=== PATIENT | female | born 1995 | race African-American/Black ===

== ENCOUNTER 2017-09-04 21:59 | Emergency (ER) | payer MEDICAID ==
[~2017-09-04] VITALS: Ht 152.4 cm; Wt 72.6 kg
--- NOTE | 2017-09-04 22:59 | Emergency Room Report ---
History of Present Illness General Chief Complaint: Female Urogenital Problems Source: Patient Present Illness HPI Pt. c/o 2-3 days thick white vaginal secretions, also itchy, irritated. Has one boyfriend she thinks he's monogamous but she wants to be treated for STDs.No abd pain, no n/v. LMP August 19. Nulliparous. No trauma, no fever, no shortness of breath, no chest pain, no nausea, no vomiting, no diarrhea, no abdominal pain , no syncope, LOC, dizziness, lightheadedness, headache. Allergies: Coded Allergies: No Known Allergies (Unverified , 09/04/17) Patient History Now: No Nursing Documentation-[facility] Past Medical History: No Stated History Review of Systems Constitutional: Denies: fever Eye: Denies: acuity changes Respiratory: Denies: cough, shortness of breath Cardiovascular: Denies: chest pain Gastrointestinal: Denies: nausea, vomiting Skin: Denies: rash Neurological: Denies: headache Physical Exam Vital Signs Date Time Temp Pulse Resp B/P (MAP) Pulse Ox O2 Delivery O2 Flow Rate FiO2 09/04/17 22:11 97.6 78 16 130/70 98 Room Air 97.5 General Appearance: well appearing, no apparent distress Head: normocephalic, atraumatic ENT: hearing grossly normal, normal voice Neck: full range of motion, supple Respiratory: no respiratory distress, speaking full sentences Genitourinary: normal inspection, no CVA tenderness, adnexa normal, cervix normal, os closed, other - white d/c looks like netta; no cmt, no adnexal masses, Musculoskeletal: no calf tenderness Neurologic: alert, normal gait Psychiatric: mood/affect normal Skin: no rash Medical Decision Making Diagnostic Impression: Primary Impression: Candidiasis of vagina Last Vital Signs Date Time Temp Pulse Resp B/P (MAP) Pulse Ox O2 Delivery O2 Flow Rate FiO2 09/04/17 22:11 97.6 78 16 130/70 98 Room Air 97.5 Status: improved Disposition: HOME, SELF-CARE Patient Instructions: Vaginal Yeast Infection, Adult Terry Morton M.D. Sep 04, 2017 22:59
[2017-09-04] MEDS ORDERED: Azithromycin 250mg tab ORAL ONE (23:00)
[2017-09-04] MEDS ORDERED: Lidocaine 1% MPF 10mg/ml 5ml INJ ONE (23:00)
[2017-09-04] MEDS ORDERED: METRONIDAZOLE500 MG ORAL (23:18)
[2017-09-04 23:30] VITALS: BP 128/70
[2017-09-05 00:15] VITALS: BP 130/70
== END 2017-09-05 00:15 | disposition home or self-care (01) ==
LOC: EMR 23:11
DX: B37.3 Candidiasis of vulva and vagina (principal)
CPT/HCPCS: 87210; 87491; 87590; 96372; 99283; J0696; Q0144

== ENCOUNTER 2017-09-15 21:45 | Emergency (ER) | payer MEDICAID, OTHER ==
[~2017-09-15] VITALS: Ht 152.4 cm; Wt 88.0 kg
[~2017-09-15 21:45] MED LIST: METRONIDAZOLE500 MG ORAL
[2017-09-15 23:15] VITALS: BP 132/89
[2017-09-16] MEDS ORDERED: Acetaminophen 500mg (ES) tab ORAL ONE
[2017-09-16] MEDS ORDERED: IBUPROFEN600 MG ORAL (00:05)
[2017-09-16] MEDS ORDERED: LIDOCAINE700 M1 TP (00:06)
[2017-09-16 00:15] VITALS: BP 132/89
--- NOTE | 2017-09-18 15:10 | Emergency Room Report ---
History of Present Illness General Chief Complaint: Pain Source: Patient Present Illness HPI Patient is a 22-year-old female presented after increased left shoulder pain after lifting heavy boxes at work. Patient reported having increased gradual onset of symptoms. She denies any numbness or weakness. She presented having increased pain with movements. This had had not been associated with any fever. She denies any recent trauma. She reports having the pain to the shoulder primarily. Allergies: Coded Allergies: No Known Allergies (Unverified , 09/04/17) Patient History Past Medical History: see triage record Last Menstrual Period: 09/14/17 Reviewed Nursing Documentation: PMH: Agreed; PSxH: Agreed Nursing Documentation-PMH Past Medical History: No History, Except For Review of Systems All Other Systems: negative except mentioned in HPI Physical Exam Vital Signs Date Time Temp Pulse Resp B/P (MAP) Pulse Ox O2 Delivery O2 Flow Rate FiO2 09/15/17 23:11 97.9 75 16 132/89 95 Room Air 97.9 Sp02 EP Interpretation: reviewed, normal General Appearance: normal inspection, well appearing, no apparent distress, alert Head: atraumatic ENT: normal ENT inspection, hearing grossly normal, normal voice Neck: normal inspection, full range of motion, supple, no bony tend Respiratory: normal inspection, lungs clear, normal breath sounds, no respiratory distress, no retraction, no wheezing Cardiovascular #1: regular rate, rhythm, no edema Gastrointestinal: normal inspection, normal bowel sounds, non tender, soft, no guarding, no hernia Genitourinary: no CVA tenderness Musculoskeletal: normal inspection, back normal, decreased range of motion - limited ROM tenderness to left paraspinous muscles Neurologic: normal inspection, alert, responsive, speech normal Psychiatric: normal inspection, judgement/insight normal, mood/affect normal Skin: normal inspection, normal color, no rash Medical Decision Making Diagnostic Impression: Primary Impression: Muscle strain ER Course The patient presented for left shoulder pain. Differential diagnoses included was not limited to fracture, dislocation, a.c. separation, septic joint. The shoulder pain appears to be muscular in nature. The patient was given pain medications. She is advised to follow-up with workers comp physician. She is placed on light duty. test was noted be negative.The patient is advised to follow up with workers comp . Patient is advised to return if any worsening condition or if any changes in status that are concerning. This report is dictated with [employer] operator tape rules software which may occasionally lead to discrepancies related to use of this software. Last Vital Signs Date Time Temp Pulse Resp B/P (MAP) Pulse Ox O2 Delivery O2 Flow Rate FiO2 09/16/17 00:15 97.9 16 132/89 95 Room Air 208.2 09/15/17 23:15 75 Status: improved Disposition: HOME, SELF-CARE Condition: Stable Scripts Lidocaine (Lidocaine) 1 Each Adh..patch 5 % TP DAILY, #30 PATCH Prov: Rusty Ramos MD 09/16/17 Ibuprofen* (MOTRIN*) 600 Mg Tablet 600 MG ORAL Q8H PRN for For Pain, #30 TAB 0 Refills Prov: Rusty Ramos MD 09/16/17 Referrals: NOT CHOSEN IPA/,REFERRING (PCP) Patient Instructions: Muscle Strain Rusty Ramos MD Sep 18, 2017 15:10
== END 2017-09-16 00:15 | disposition home or self-care (01) ==
LOC: EMR 23:55
DX: S46.912A Strain of unspecified muscle, fascia and tendon at shoulder and upper arm level, left arm, initial encounter (principal); X50.0XXA Overexertion from strenuous movement or load, initial encounter; Y93.89 Activity, other specified; Y92.89 Other specified places as the place of occurrence of the external cause; Y99.0 Civilian activity done for income or pay
CPT/HCPCS: 99283

== ENCOUNTER 2017-11-14 19:36 | Emergency (ER) | payer MEDICAID, OTHER ==
[~2017-11-14] VITALS: Ht 152.4 cm; Wt 87.1 kg
[~2017-11-14 19:36] MED LIST changes: +IBUPROFEN600 MG ORAL; +LIDOCAINE700 M1 TP
[2017-11-14] MEDS ORDERED: NKM (19:42)
--- NOTE | 2017-11-14 19:57 | Emergency Room Report ---
History of Present Illness General Chief Complaint: Abdominal Pain Source: Patient (Osorio Cerrato M.D.) Present Illness HPI Patient presents with 8 days of illness. It started with vomiting initially. Now she has a slight cough sore throat headache. She denies any diarrhea. She doesn't think she is but she's not sure. She's been one time in the past has been many years. She says her period has lasted longer than usual and has been bleeding for most the time of this illness. The pain in her abdomen is rated at 8/10, constant, diffuse, not radiating. No dysuria. The patient was treated for a lung infection many years ago when she was living in [place]. The cough right now is nonproductive. It's worse when she is laying down. She's not herself wheezing. She feels myalgias and some pleuritic chest pain. H/O migraines and headache now. (Osorio Cerrato M.D.) Allergies: Coded Allergies: No Known Allergies (Unverified , 09/04/17) Patient History Past Medical History: see triage record Social History: Denies: smoking, alcohol use, drug use Social History Narrative with sig other Last Menstrual Period: currently on period Now: No Reviewed Nursing Documentation: PMH: Agreed; PSxH: Agreed (Osorio Cerrato M.D.) Nursing Documentation-PMH Past Medical History: No History, Except For (Osorio Cerrato M.D.) Review of Systems All Other Systems: negative except mentioned in HPI (Osorio Cerrato M.D.) Physical Exam Vital Signs Date Time Temp Pulse Resp B/P (MAP) Pulse Ox O2 Delivery O2 Flow Rate FiO2 11/14/17 19:37 98.6 63 18 125/81 97 Room Air 98.6 Sp02 EP Interpretation: reviewed, normal General Appearance: well appearing, no apparent distress, GCS 15 Head: normocephalic, atraumatic Eyes: bilateral eye normal inspection, bilateral eye PERRL ENT: normal pharynx, moist mucus membranes, other - piercing Neck: supple Respiratory: lungs clear, normal breath sounds Cardiovascular #1: regular rate, rhythm Cardiovascular #2: 2+ radial (R) Gastrointestinal: normal inspection, normal bowel sounds, no mass, non- distended, no guarding, no rebound, tenderness - diffuse, overweight Genitourinary: no CVA tenderness Musculoskeletal: back normal, gait/station normal, normal range of motion Neurologic: alert, oriented x3 Skin: normal inspection, warm/dry (Osorio Cerrato M.D.) Medical Decision Making Diagnostic Impression: Primary Impression: Abdominal pain Qualified Codes: R10.31 - Right lower quadrant pain Additional Impressions: UTI (urinary tract infection) Qualified Codes: N39.0 - Urinary tract infection, site not specified Uterine fibroid ER Course Patient presents with vomiting myalgias mild cough and sore throat. Differential includes viral syndrome, , electrolyte abnormality. Exam is against pneumonia and no wheezes are heard. Evaluation will be with labs. Patient be treated with Reglan and Benadryl. If her test is negative she'll be given Toradol. Labs with leukocytosis. CMP and lipase normal. Pyuria. Pain worse and RLQ, guarding, some referred pain and no rebound. WBC elevated. Will get CT. Pyuria. Rocephin ordered. Patient signed out to Dr. Rebolledo awaiting CT of abdomen and pelvis with contrast. Laboratory Tests Test 11/14/17 20:10 11/14/17 20:13 Urine Color Shanda Urine Appearance Slightly cloudy Urine pH 7 (4.5-8.0) Urine Specific [place] 1.015 (1.005-1.035) Urine Protein Negative (NEGATIVE) Urine Glucose (UA) Negative (NEGATIVE) Urine Ketones Negative (NEGATIVE) Urine Blood 1+ (NEGATIVE) H Urine Nitrite Negative (NEGATIVE) Urine Bilirubin Negative (NEGATIVE) Urine Ictotest Negative (NEGATIVE) Urine Urobilinogen Normal MG/DL (0.0-1.0) Urine Leukocyte Esterase 1+ (NEGATIVE) H Urine RBC 2-4 /HPF (0 - 2) H Urine WBC 10-15 /HPF (0 - 2) H Urine Squamous Epithelial Cells Moderate /LPF (NONE/OCC) H Urine Bacteria Few /HPF (NONE) Urine HCG, Qualitative Negative (NEGATIVE) White Blood Count 13.1 K/UL (4.8-10.8) H Red Blood Count 4.87 M/UL (4.20-5.40) Hemoglobin 13.4 G/DL (12.0-16.0) Hematocrit 40.6 % (37.0-47.0) Mean Corpuscular Volume 83 FL (80-99) Mean Corpuscular Hemoglobin 27.5 PG (27.0-31.0) Mean Corpuscular Hemoglobin Concent 33.0 G/DL (32.0-36.0) Red Cell Distribution Width 13.3 % (11.6-14.8) Platelet Count 319 K/UL (150-450) Mean Platelet Volume 7.0 FL (6.5-10.1) Neutrophils (%) (Auto) 42.5 % (45.0-75.0) L Lymphocytes (%) (Auto) 48.4 % (20.0-45.0) H Monocytes (%) (Auto) 6.6 % (1.0-10.0) Eosinophils (%) (Auto) 1.2 % (0.0-3.0) Basophils (%) (Auto) 1.3 % (0.0-2.0) Sodium Level 141 MMOL/L (136-145) Potassium Level 4.2 MMOL/L (3.5-5.1) Chloride Level 107 MMOL/L (98-107) Carbon Dioxide Level 27 MMOL/L (21-32) Anion Gap 7 mmol/L (5-15) Blood Urea Nitrogen 14 mg/dL (7-18) Creatinine 1.1 MG/DL (0.55-1.30) Estimate Glomerular Filtration Rate > 60 mL/min (>60) Glucose Level 94 MG/DL (74-106) Calcium Level 9.1 MG/DL (8.5-10.1) Total Bilirubin 0.2 MG/DL (0.2-1.0) Aspartate Amino Transferase (AST) 20 U/L (15-37) Alanine Aminotransferase (ALT) 45 U/L (12-78) Alkaline Phosphatase 54 U/L (46-116) Total Protein 7.6 G/DL (6.4-8.2) Albumin 3.7 G/DL (3.4-5.0) Globulin 3.9 g/dL Albumin/Globulin Ratio 0.9 (1.0-2.7) L Lipase 196 U/L (73-393) (Osorio Cerrato M.D.) ER Course Please refer to the initial note for the history exam and presentation Patient's white blood cell count was mildly elevated Patient did have lower abdominal pain and therefore CT imaging has not been obtained Patient has a large 8 x 6 cm uterine fibroid seen on the CAT scan there is no other acute pathology seen by radiology Patient was given initial dose of antibiotics here Will be placed on Cipro for home Patient did have questions regarding her fibroids, she had previous knowledge of the fibroids as well I did discuss with her that gynecology specialty is the appropriate specialty to follow-up with for further recommendations regarding this finding Labs Test 11/14/17 20:10 11/14/17 20:13 Urine Color Shanda Urine Appearance Slightly cloudy Urine pH 7 (4.5-8.0) Urine Specific [place] 1.015 (1.005-1.035) Urine Protein Negative (NEGATIVE) Urine Glucose (UA) Negative (NEGATIVE) Urine Ketones Negative (NEGATIVE) Urine Blood 1+ (NEGATIVE) Urine Nitrite Negative (NEGATIVE) Urine Bilirubin Negative (NEGATIVE) Urine Ictotest Negative (NEGATIVE) Urine Urobilinogen Normal MG/DL (0.0-1.0) Urine Leukocyte Esterase 1+ (NEGATIVE) Urine RBC 2-4 /HPF (0 - 2) Urine WBC 10-15 /HPF (0 - 2) Urine Squamous Epithelial Cells Moderate /LPF (NONE/OCC) Urine Bacteria Few /HPF (NONE) Urine HCG, Qualitative Negative (NEGATIVE) White Blood Count 13.1 K/UL (4.8-10.8) Red Blood Count 4.87 M/UL (4.20-5.40) Hemoglobin 13.4 G/DL (12.0-16.0) Hematocrit 40.6 % (37.0-47.0) Mean Corpuscular Volume 83 FL (80-99) Mean Corpuscular Hemoglobin 27.5 PG (27.0-31.0) Mean Corpuscular Hemoglobin Concent 33.0 G/DL (32.0-36.0) Red Cell Distribution Width 13.3 % (11.6-14.8) Platelet Count 319 K/UL (150-450) Mean Platelet Volume 7.0 FL (6.5-10.1) Neutrophils (%) (Auto) 42.5 % (45.0-75.0) Lymphocytes (%) (Auto) 48.4 % (20.0-45.0) Monocytes (%) (Auto) 6.6 % (1.0-10.0) Eosinophils (%) (Auto) 1.2 % (0.0-3.0) Basophils (%) (Auto) 1.3 % (0.0-2.0) Sodium Level 141 MMOL/L (136-145) Potassium Level 4.2 MMOL/L (3.5-5.1) Chloride Level 107 MMOL/L (98-107) Carbon Dioxide Level 27 MMOL/L (21-32) Anion Gap 7 mmol/L (5-15) Blood Urea Nitrogen 14 mg/dL (7-18) Creatinine 1.1 MG/DL (0.55-1.30) Estimat Glomerular Filtration Rate > 60 mL/min (>60) Glucose Level 94 MG/DL (74-106) Calcium Level 9.1 MG/DL (8.5-10.1) Total Bilirubin 0.2 MG/DL (0.2-1.0) Aspartate Amino Transf (AST/SGOT) 20 U/L (15-37) Alanine Aminotransferase (ALT/SGPT) 45 U/L (12-78) Alkaline Phosphatase 54 U/L (46-116) Total Protein 7.6 G/DL (6.4-8.2) Albumin 3.7 G/DL (3.4-5.0) Globulin 3.9 g/dL Albumin/Globulin Ratio 0.9 (1.0-2.7) Lipase 196 U/L (73-393) (Shreya Rebolledo DO) CT/MRI/US Diagnostic Results CT/MRI/US Diagnostic Results : Impression CT abdomen pelvis: Enlarged fibroid uterus measuring 8.2 cm in length by 6. centimeters AP no other acute abdominal or pelvic pathology (Shreya Rebolledo DO) Status: improved (Osorio Cerrato M.D.) Status: improved (Shreya Rebolledo DO) Disposition: HOME, SELF-CARE Condition: Improved Scripts Ibuprofen* (MOTRIN*) 600 Mg Tablet 600 MG ORAL Q8H PRN for For Pain, #20 TAB 0 Refills Prov: Shreya Rebolledo DO 11/15/17 Ciprofloxacin Hcl* (CIPROFLOXACIN HCL*) 500 Mg Tablet 500 MG ORAL Q12H, #10 TAB 0 Refills Prov: Shreya Rebolledo DO 11/15/17 Additional Instructions: Patient is provided with the discharge instructions notified to follow up with primary doctor in the next 2-3 days otherwise return to the er with any worsening symptoms. Please note that this report is being documented using [employer] technology. This can lead to erroneous entry secondary to incorrect interpretation by the dictating instrument. Osorio Cerrato M.D. Nov 14, 2017 19:57 Shreya eRbolledo DO Nov 15, 2017 00:26
[2017-11-14] MEDS ORDERED: DiphenhydrAMINE 50mg/ml Inj IVP ONE (20:00)
[2017-11-14] MEDS ORDERED: Metoclopramide 10mg/2ml Inj IVP ONE (20:00)
[2017-11-14 20:23] LABS: APPEARANCE,URINE SLIGHTLY CLOUDY; BILIRUBIN, URINE NEGATIVE (NEGATIVE); COLOR,URINE AMBER; GLUCOSE, URINE (UA) NEGATIVE (NEGATIVE); KETONES,URINE NEGATIVE (NEGATIVE); LEUKOCYTE ESTERASE ,URINE 1+ (NEGATIVE); NITRITE,URINE NEGATIVE (NEGATIVE); PH,URINE 7 (4.5-8.0); PROTEIN,URINE NEGATIVE (NEGATIVE); UROBILINOGEN,URINE NORMAL MG/DL (0.0-1.0)
[2017-11-14 20:27] LABS: BASOPHILS % (AUTO) 1.3 % (0.0-2.0); EOSINOPHILS % (AUTO) 1.2 % (0.0-3.0); HEMATOCRIT 40.6 % (37.0-47.0); HEMOGLOBIN 13.4 G/DL (12.0-16.0); LYMPHOCYTES % (AUTO) 48.4 % (20.0-45.0); MEAN CORPUSCULAR VOLUME 83 FL (80-99); MONOCYTES % (AUTO) 6.6 % (1.0-10.0); NEUTROPHILS % (AUTO) 42.5 % (45.0-75.0); PLATELET COUNT 319 K/UL (150-450); RED BLOOD COUNT 4.87 M/UL (4.20-5.40); RED CELL DISTRIBUTION WIDTH 13.3 % (11.6-14.8); WHITE BLOOD COUNT 13.1 K/UL (4.8-10.8)
[2017-11-14 20:30] VITALS: BP 121/81
[2017-11-14 20:34] LABS: ANION GAP 7 mmol/L (5-15); BLOOD UREA NITROGEN 14 mg/dL (7-18); CALCIUM 9.1 MG/DL (8.5-10.1); CARBON DIOXIDE 27 MMOL/L (21-32); CHLORIDE 107 MMOL/L (98-107); CREATININE 1.1 MG/DL (0.55-1.30); POTASSIUM 4.2 MMOL/L (3.5-5.1); SODIUM 141 MMOL/L (136-145)
[2017-11-14 20:38] LABS: ALANINE AMINOTRANSFERASE 45 U/L (12-78); ALBUMIN 3.7 G/DL (3.4-5.0); ALBUMIN/GLOBULIN RATIO 0.9 (1.0-2.7); ALKALINE PHOSPHATASE 54 U/L (46-116); ASPARTATE AMINO TRANSFERASE 20 U/L (15-37); BILIRUBIN,TOTAL 0.2 MG/DL (0.2-1.0)
[2017-11-14] MEDS ORDERED: Morphine Sulfate 4mg/ml Inj (IV USE ONLY) IVP ONE (21:00)
[2017-11-14] MEDS ORDERED: Ketorolac 30mg Inj IV ONE (21:00)
[2017-11-14] MEDS ORDERED: Isovue-300 100ml vial INJ PRN (21:00)
[2017-11-14] MEDS ORDERED: cefTRIAXone 1 GM in NS 55 ML IVPB ONE (21:00)
[2017-11-14 22:53] VITALS: BP 105/62
[2017-11-15] MEDS ORDERED: IBUPROFEN600 MG ORAL (00:27)
[2017-11-15] MEDS ORDERED: CIPROFLOXACIN500 M2 ORAL (00:27)
[2017-11-15 00:30] VITALS: BP 105/62
--- NOTE | 2017-11-15 08:40 | Diagnostic Imaging Report ---
Indication: Abdominal pain Technique: Continuous helical transaxial imaging of the abdomen and pelvis was obtained from the lung bases to the pubic symphysis during intravenous contrast administration. Coronal 2-D reformats were also obtained. Study obtained in a Siemens sensation [address] Automatic Exposure Control was utilized. Total Dose length Product (DLP): 817.[address] Dose Index Volume (CTDIvol): 15.47 mGy Comparison: None Findings: The lung bases are clear. The liver is hypodense consistent with fatty infiltration. Gallbladder is unremarkable. The kidneys and spleen appear unremarkable. No biliary ductal dilatation identified. No abnormalities of the pancreas are seen. Umbilical hernia containing fat noted. Retrocecal appendix is normal. 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 This is not well assessed or adequately evaluated on this exam. The bladder is unremarkable. No free fluid or free air identified. 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 Further evaluation is recommended. Normal appendix Fatty liver The CT scanner at [facility] is accredited by the [employer] and the scans are performed using dose optimization techniques as appropriate to a performed exam including Automatic Exposure control.
== END 2017-11-15 00:40 | disposition home or self-care (01) ==
LOC: EMR 20:05
DX: N39.0 Urinary tract infection, site not specified (principal); D25.9 Leiomyoma of uterus, unspecified
CPT/HCPCS: 36415; 74177; 80053; 81003; 81025; 83690; 85025; 87086; 96361; 96365; 96375; 99284; J0696; J1200; J1885; J2270; J2765; Q9967

== ENCOUNTER 2017-12-04 06:03 | Emergency (ER) | payer MEDICAID ==
[~2017-12-04] VITALS: Ht 152.4 cm; Wt 87.1 kg
[~2017-12-04 06:03] MED LIST changes: +CIPROFLOXACIN500 M2 ORAL; +NKM
[2017-12-04] MEDS ORDERED: guaiFENesin w/Codeine 5ml Liq ud ORAL STA (06:31)
[2017-12-04 06:35] VITALS: BP 119/71
--- NOTE | 2017-12-04 06:37 | Emergency Room Report ---
History of Present Illness General Chief Complaint: Upper Respiratory Illness Source: Patient Present Illness HPI Patient returns to the emergency room. She's had a cough for 3 weeks. It's nonproductive. She's not been having fevers or chills. The cough is causing the headache. She has a history of migraines. She's tried [id number] cough syrup and [place]. These haven't helped. She has a sore throat also. Patient reports the pain as 10/10. It's pressure in her head and also she complains about lower abdominal pain also. On November 14 she was seen for abdominal pain. A CT scan show that she had fibroids. She was also treated for a UTI. A culture grew out mixed organisms. She was treated with ciprofloxacin. Denies dysuria at this time. No bleeding. LNMP 11/25. She still has some lower abdominal pain. She is scheduled for him with an OB/ [facility]. She denies any dysuria. There is no change in bowels. The patient denies rash. Allergies: Coded Allergies: No Known Allergies (Unverified , 09/04/17) Patient History Past Medical History: see triage record Social History: Denies: smoking - Secondhand Social History Narrative With significant other Last Menstrual Period: 11/25 Now: No Reviewed Nursing Documentation: PMH: Agreed; PSxH: Agreed Nursing Documentation-PM Past Medical History: No Stated History Review of Systems All Other Systems: negative except mentioned in HPI Physical Exam Vital Signs Date Time Temp Pulse Resp B/P (MAP) Pulse Ox O2 Delivery O2 Flow Rate FiO2 12/04/17 06:16 98.2 66 18 125/72 98 Room Air Sp02 EP Interpretation: reviewed, normal General Appearance: well appearing, no apparent distress, GCS 15 Head: normocephalic Eyes: bilateral eye normal inspection, bilateral eye PERRL ENT: moist mucus membranes, pharyngeal erythema - Lymphoid inflammation Neck: supple Respiratory: lungs clear, normal breath sounds, wheezing - Posttussive Cardiovascular #1: regular rate, rhythm, no edema Cardiovascular #2: 2+ radial (R) Gastrointestinal: normal inspection, normal bowel sounds, no mass, non- distended, no guarding, no rebound, tenderness - Lower abdominal tenderness, overweight Musculoskeletal: back normal, gait/station normal, normal range of motion Neurologic: alert, oriented x3, grossly normal Psychiatric: mood/affect normal Skin: normal inspection, warm/dry Medical Decision Making Diagnostic Impression: Primary Impression: Bronchospasm Additional Impressions: Early stage of Viral pharyngitis ER Course Patient with 3 weeks of cough and lower abdominal pain. DDx: URI, bronchospasm , fibroid pain, UTI, strep amongst others. Evaluation with CXR, UA and labs. Treatment with breathing treatment, solumedrol, robitussin codeine. Labs with normal CBC, CMP. UA clear. Preg + - sent quant = 48. Improved with treatment. Still with cough. Discussed results with patient and partner. Patient stable for outpatient observation and treatment. Laboratory Tests Test 12/04/17 06:50 12/04/17 07:55 White Blood Count 11.7 K/UL (4.8-10.8) H Red Blood Count 5.11 M/UL (4.20-5.40) Hemoglobin 13.8 G/DL (12.0-16.0) Hematocrit 41.0 % (37.0-47.0) Mean Corpuscular Volume 80 FL (80-99) Mean Corpuscular Hemoglobin 27.0 PG (27.0-31.0) Mean Corpuscular Hemoglobin Concent 33.6 G/DL (32.0-36.0) Red Cell Distribution Width 12.8 % (11.6-14.8) Platelet Count 284 K/UL (150-450) Mean Platelet Volume 8.0 FL (6.5-10.1) Neutrophils (%) (Auto) 50.9 % (45.0-75.0) Lymphocytes (%) (Auto) 41.4 % (20.0-45.0) Monocytes (%) (Auto) 5.3 % (1.0-10.0) Eosinophils (%) (Auto) 1.3 % (0.0-3.0) Basophils (%) (Auto) 1.1 % (0.0-2.0) D-Dimer 0.27 mg/L FEU (0.00-0.49) Sodium Level 140 MMOL/L (136-145) Potassium Level 3.8 MMOL/L (3.5-5.1) Chloride Level 105 MMOL/L (98-107) Carbon Dioxide Level 26 MMOL/L (21-32) Anion Gap 9 mmol/L (5-15) Blood Urea Nitrogen 14 mg/dL (7-18) Creatinine 1.1 MG/DL (0.55-1.30) Estimate Glomerular Filtration Rate > 60 mL/min (>60) Glucose Level 105 MG/DL (74-106) Calcium Level 8.8 MG/DL (8.5-10.1) Total Bilirubin 0.2 MG/DL (0.2-1.0) Aspartate Amino Transferase (AST) 20 U/L (15-37) Alanine Aminotransferase (ALT) 37 U/L (12-78) Alkaline Phosphatase 51 U/L (46-116) Total Protein 7.5 G/DL (6.4-8.2) Albumin 3.5 G/DL (3.4-5.0) Globulin 4.0 g/dL Albumin/Globulin Ratio 0.9 (1.0-2.7) L Human Chorionic Gonadotropin, Quant 48 mIU/mL (1-6) H Urine Color Pale yellow Urine Appearance Clear Urine pH 5 (4.5-8.0) Urine Specific [place] 1.020 (1.005-1.035) Urine Protein Negative (NEGATIVE) Urine Glucose (UA) Negative (NEGATIVE) Urine Ketones 1+ (NEGATIVE) H Urine Blood 2+ (NEGATIVE) H Urine Nitrite Negative (NEGATIVE) Urine Bilirubin Negative (NEGATIVE) Urine Urobilinogen Normal MG/DL (0.0-1.0) Urine Leukocyte Esterase Negative (NEGATIVE) Urine RBC 2-4 /HPF (0 - 2) H Urine WBC 2-4 /HPF (0 - 2) Urine Squamous Epithelial Cells Occasional /LPF Urine Bacteria Occasional /HPF (NONE) Urine HCG, Qualitative Positive (NEGATIVE) Rhythm Strip Diag. Results EP Interpretation: yes Rhythm: NSR, no PVC's, no ectopy Chest X-Ray Diagnostic Results Chest X-Ray Diagnostic Results : Chest X-Ray Ordered: Yes # of Views/Limited/Complete: 1 View Indication: Other EP Interpretation: Yes Interpretation: no consolidation, no effusion, no pneumothorax, other - Poor inspiration Impression: Other Electronically Signed by: Electronically signed by Osorio Cerrato MD Last Vital Signs Date Time Temp Pulse Resp B/P (MAP) Pulse Ox O2 Delivery O2 Flow Rate FiO2 12/04/17 09:59 98.2 80 18 122/73 98 Room Air 21 Status: improved Disposition: HOME, SELF-CARE Condition: Improved Scripts Acetaminophen (Tylenol) 325 Mg Tablet 650 MG ORAL Q6H PRN for Prn Pain/Headache/Temp > 101, #20 TAB 0 Refills Prov: Osorio Cerrato MD 12/04/17 Albuterol Sulfate* (ALBUTEROL SULFATE MDI*) 8.5 Gm Hfa.aer.ad 2 PUFF INH Q6H, #1 EA 0 Refills Prov: Osorio Cerrato MD 12/04/17 Guaifenesin/Codeine Phos* (ROBITUSSIN AC*) 118 Ml Liquid 5 ML ORAL Q6H PRN for For Cough, #90 ML 0 Refills Prov: Osorio Cerrato MD 12/04/17 Osorio Cerrato MD Dec 04, 2017 06:37
[2017-12-04] MEDS ORDERED: Ipratropium 0.02% Inh Soln 2.5ml UD HHN ONE (06:45)
[2017-12-04] MEDS ORDERED: Solu-MEDROL 125mg Inj IVP ONE (06:45)
[2017-12-04] MEDS ORDERED: Albuterol ud Inhalation HHN ONE (06:45)
[2017-12-04 07:34] LABS: BASOPHILS % (AUTO) 1.1 % (0.0-2.0); EOSINOPHILS % (AUTO) 1.3 % (0.0-3.0); HEMOGLOBIN 13.8 G/DL (12.0-16.0); LYMPHOCYTES % (AUTO) 41.4 % (20.0-45.0); MEAN CORPUSCULAR VOLUME 80 FL (80-99); MONOCYTES % (AUTO) 5.3 % (1.0-10.0); NEUTROPHILS % (AUTO) 50.9 % (45.0-75.0); PLATELET COUNT 284 K/UL (150-450); RED BLOOD COUNT 5.11 M/UL (4.20-5.40); RED CELL DISTRIBUTION WIDTH 12.8 % (11.6-14.8); WHITE BLOOD COUNT 11.7 K/UL (4.8-10.8)
[2017-12-04 07:37] LABS: ANION GAP 9 mmol/L (5-15); BLOOD UREA NITROGEN 14 mg/dL (7-18); CALCIUM 8.8 MG/DL (8.5-10.1); CARBON DIOXIDE 26 MMOL/L (21-32); CHLORIDE 105 MMOL/L (98-107); CREATININE 1.1 MG/DL (0.55-1.30); POTASSIUM 3.8 MMOL/L (3.5-5.1); SODIUM 140 MMOL/L (136-145)
[2017-12-04 07:42] LABS: ALANINE AMINOTRANSFERASE 37 U/L (12-78); ALBUMIN 3.5 G/DL (3.4-5.0); ALBUMIN/GLOBULIN RATIO 0.9 (1.0-2.7); ALKALINE PHOSPHATASE 51 U/L (46-116); ASPARTATE AMINO TRANSFERASE 20 U/L (15-37); BILIRUBIN,TOTAL 0.2 MG/DL (0.2-1.0)
--- NOTE | 2017-12-04 07:55 | Diagnostic Imaging Report ---
EXAM: XR Chest, 1 View CLINICAL HISTORY: COUGH TECHNIQUE: Frontal view of the chest. COMPARISON: No relevant prior studies available. FINDINGS: Lungs: Low lung volume accentuate lung markings and cardiovascular silhouette. No dense consolidation or effusion. Pleural space: Unremarkable. No pneumothorax. Heart: Cardiovascular silhouette, upper limits of normal. Mediastinum: Mediastinal contour within normal limits. Bones/joints: Unremarkable. IMPRESSION: Low lung volume. No dense consolidation or effusion.
[2017-12-04 08:20] LABS: APPEARANCE,URINE CLEAR; BILIRUBIN, URINE NEGATIVE (NEGATIVE); COLOR,URINE PALE YELLOW; GLUCOSE, URINE (UA) NEGATIVE (NEGATIVE); KETONES,URINE 1+ (NEGATIVE); LEUKOCYTE ESTERASE ,URINE NEGATIVE (NEGATIVE); NITRITE,URINE NEGATIVE (NEGATIVE); PH,URINE 5 (4.5-8.0); PROTEIN,URINE NEGATIVE (NEGATIVE); UROBILINOGEN,URINE NORMAL MG/DL (0.0-1.0)
[2017-12-04] MEDS ORDERED: ALBUTEROL SULF8.5 GM INH (09:44)
[2017-12-04] MEDS ORDERED: GUAIFENESIN-CO118 M1 ORAL (09:44)
[2017-12-04] MEDS ORDERED: TYLENOL325 MG ORAL (09:44)
[2017-12-04 09:58] VITALS: BP 122/73
[2017-12-04 09:59] VITALS: BP 122/73
== END 2017-12-04 10:01 | disposition home or self-care (01) ==
LOC: EMR 06:34
DX: J98.01 Acute bronchospasm (principal); J02.9 Acute pharyngitis, unspecified; Z32.01 Encounter for pregnancy test, result positive
CPT/HCPCS: 36415; 71045; 80053; 81003; 81025; 84702; 85025; 85379; 94640; 94664; 96374; 99284; J2930

== ENCOUNTER 2018-01-27 00:27 | Emergency (ER) | payer MEDICAID ==
[~2018-01-27] VITALS: Ht 152.4 cm; Wt 88.0 kg
[~2018-01-27 00:27] MED LIST changes: +ALBUTEROL SULF8.5 GM INH; +GUAIFENESIN-CO118 M1 ORAL; +TYLENOL325 MG ORAL
[2018-01-27] MEDS ORDERED: PRENATAL GUMMI1 EACH PO (00:51)
[2018-01-27] MEDS ORDERED: FOLIC ACID1 MG ORAL (00:51)
[2018-01-27 00:56] VITALS: BP 131/88
[2018-01-27] MEDS ORDERED: Morphine Sulfate 4mg/ml Inj (IV/IM USE ONLY) IVP ONE (01:15)
[2018-01-27 01:20] LABS: BILIRUBIN, URINE NEGATIVE (NEGATIVE); COLOR,URINE PALE YELLOW; GLUCOSE, URINE (UA) NEGATIVE (NEGATIVE); KETONES,URINE NEGATIVE (NEGATIVE); LEUKOCYTE ESTERASE ,URINE NEGATIVE (NEGATIVE); NITRITE,URINE NEGATIVE (NEGATIVE); PH,URINE 6.5 (4.5-8.0); PROTEIN,URINE 1+ (NEGATIVE); UROBILINOGEN,URINE NORMAL MG/DL (0.0-1.0)
[2018-01-27 01:24] LABS: BASOPHILS % (AUTO) 1.1 % (0.0-2.0); EOSINOPHILS % (AUTO) 0.5 % (0.0-3.0); HEMATOCRIT 41.1 % (37.0-47.0); HEMOGLOBIN 13.5 G/DL (12.0-16.0); LYMPHOCYTES % (AUTO) 26.7 % (20.0-45.0); MEAN CORPUSCULAR VOLUME 82 FL (80-99); MONOCYTES % (AUTO) 7.4 % (1.0-10.0); NEUTROPHILS % (AUTO) 64.3 % (45.0-75.0); PLATELET COUNT 320 K/UL (150-450); RED CELL DISTRIBUTION WIDTH 12.5 % (11.6-14.8); WHITE BLOOD COUNT 15.3 K/UL (4.8-10.8)
[2018-01-27 01:36] LABS: ANION GAP 12 mmol/L (5-15); BLOOD UREA NITROGEN 8 mg/dL (7-18); CALCIUM 9.4 MG/DL (8.5-10.1); CARBON DIOXIDE 21 MMOL/L (21-32); CHLORIDE 103 MMOL/L (98-107); CREATININE 0.9 MG/DL (0.55-1.30); POTASSIUM 3.7 MMOL/L (3.5-5.1); SODIUM 136 MMOL/L (136-145)
[2018-01-27 01:37] LABS: APPEARANCE,URINE CLEAR
--- NOTE | 2018-01-27 01:37 | Emergency Room Report ---
History of Present Illness General Chief Complaint: Abdominal Pain Source: Patient Present Illness HPI 23-year-old female presents ED for evaluation. States that she's been having abdominal pain. Right-sided, burning, 8 out of 10, radiating to epigastrum. Denies fevers or chills. Notes nausea and vomiting. She is about 11 weeks . Denies any vaginal bleeding at this time but notes spotting earlier this week. Patient states she has his pain persistently but states that her OB/ WALL CLEANER is doing nothing about it. Denies chest pain. Denies shortness of breath. No other aggravating relieving factors. Denies any other associated symptoms Allergies: Coded Allergies: No Known Allergies (Unverified , 01/27/18) Patient History Past Medical History: other - sickle cell Past Surgical History: none Pertinent Family History: none Social History: Denies: smoking, alcohol use, drug use Last Menstrual Period: 11/10/2017 Now: Yes - 11 weeks Immunizations: UTD Reviewed Nursing Documentation: PMH: Agreed; PSxH: Agreed Nursing Documentation-PMH Past Medical History: No Stated History Review of Systems All Other Systems: negative except mentioned in HPI Physical Exam Vital Signs Date Time Temp Pulse Resp B/P (MAP) Pulse Ox O2 Delivery O2 Flow Rate FiO2 01/27/18 00:43 97.7 72 14 131/88 99 01/27/18 00:56 Room Air 98 Sp02 EP Interpretation: reviewed, normal General Appearance: no apparent distress, alert, GCS 15, non-toxic Head: normocephalic, atraumatic Eyes: bilateral eye normal inspection, bilateral eye PERRL ENT: hearing grossly normal, normal pharynx, no angioedema, normal voice Neck: full range of motion, supple/symm/no masses Respiratory: chest non-tender, lungs clear, normal breath sounds, speaking full sentences Cardiovascular #1: regular rate, rhythm, no edema Cardiovascular #2: 2+ carotid (R), 2+ carotid (L), 2+ radial (R), 2+ radial (L) , 2+ dorsalis pedis (R), 2+ dorsalis pedis (L) Gastrointestinal: normal bowel sounds, soft, non-distended, no guarding, no rebound, tenderness Rectal: deferred Genitourinary: normal inspection, no CVA tenderness Musculoskeletal: back normal, gait/station normal, normal range of motion, non- tender Neurologic: alert, oriented x3, responsive, motor strength/tone normal, sensory intact, speech normal Psychiatric: judgement/insight normal, memory normal, mood/affect normal, no suicidal/homicidal ideation Reflexes: 3+ bicep (R), 3+ bicep (L), 3+ tricep (R), 3+ tricep (L), 3+ knee (R) , 3+ knee (L) Skin: normal color, no rash, warm/dry, well hydrated Lymphatic: no adenopathy Medical Decision Making Diagnostic Impression: Primary Impression: Abdominal pain during in first trimester ER Course Hospital Course 23-year-old female presents to ED complaining of abd pain, nausea. + Differential diagnoses include: gastrits, gastroenterits, ectopic , ovarian torsion/cyst, UTI Clinical course Patient placed on stretcher in ED. After initial history and physical I ordered labs, IV fluids and Zofran, zantac and abd/pelvic ultrasound. Labs-noted leukocytosis, electrolytes okay, beta hCG greater than 100,000, UA unremarkable Pelvic ultrasound-IUP detected with heart rate, bilatearl ovarian cysts, fibroid ABD US - unable to visualize appendix, no acute process identifed Discussed findings with the patient. Patient is already aware of fibroid. At this time patient will be discharged home with prescription for Tylenol. Patient is to follow-up with her INVESTIGATOR OPERATOR regarding her persistent abdominal pain. we did not identify an acute process requiring further intervention Diagnosis - abdominal pain during in first trimester Stable and discharged to home with Rx zofran, zantac, tylenol. Followup with PMD/INVESTIGATOR OPERATOR. Return to ED if symptoms recur or worsen Labs Test 01/27/18 01:00 01/27/18 01:15 Urine Color Pale yellow Urine Appearance Clear Urine pH 6.5 (4.5-8.0) Urine Specific [place] 1.015 (1.005-1.035) Urine Protein 1+ (NEGATIVE) Urine Glucose (UA) Negative (NEGATIVE) Urine Ketones Negative (NEGATIVE) Urine Blood 2+ (NEGATIVE) Urine Nitrite Negative (NEGATIVE) Urine Bilirubin Negative (NEGATIVE) Urine Urobilinogen Normal MG/DL (0.0-1.0) Urine Leukocyte Esterase Negative (NEGATIVE) Urine RBC 5-10 /HPF (0 - 2) Urine WBC 0-2 /HPF (0 - 2) Urine Squamous Epithelial Cells Few /LPF (NONE/OCC) Urine Bacteria Few /HPF (NONE) Urine HCG, Qualitative Positive (NEGATIVE) White Blood Count 15.3 K/UL (4.8-10.8) Red Blood Count 5.00 M/UL (4.20-5.40) Hemoglobin 13.5 G/DL (12.0-16.0) Hematocrit 41.1 % (37.0-47.0) Mean Corpuscular Volume 82 FL (80-99) Mean Corpuscular Hemoglobin 26.9 PG (27.0-31.0) Mean Corpuscular Hemoglobin Concent 32.8 G/DL (32.0-36.0) Red Cell Distribution Width 12.5 % (11.6-14.8) Platelet Count 320 K/UL (150-450) Mean Platelet Volume 7.1 FL (6.5-10.1) Neutrophils (%) (Auto) 64.3 % (45.0-75.0) Lymphocytes (%) (Auto) 26.7 % (20.0-45.0) Monocytes (%) (Auto) 7.4 % (1.0-10.0) Eosinophils (%) (Auto) 0.5 % (0.0-3.0) Basophils (%) (Auto) 1.1 % (0.0-2.0) Sodium Level 136 MMOL/L (136-145) Potassium Level 3.7 MMOL/L (3.5-5.1) Chloride Level 103 MMOL/L (98-107) Carbon Dioxide Level 21 MMOL/L (21-32) Anion Gap 12 mmol/L (5-15) Blood Urea Nitrogen 8 mg/dL (7-18) Creatinine 0.9 MG/DL (0.55-1.30) Estimat Glomerular Filtration Rate > 60 mL/min (>60) Glucose Level 107 MG/DL (74-106) Calcium Level 9.4 MG/DL (8.5-10.1) Total Bilirubin 0.2 MG/DL (0.2-1.0) Aspartate Amino Transf (AST/SGOT) 17 U/L (15-37) Alanine Aminotransferase (ALT/SGPT) 27 U/L (12-78) Alkaline Phosphatase 44 U/L (46-116) Total Protein 8.0 G/DL (6.4-8.2) Albumin 3.4 G/DL (3.4-5.0) Globulin 4.6 g/dL Albumin/Globulin Ratio 0.7 (1.0-2.7) Lipase 127 U/L (73-393) Human Chorionic Gonadotropin, Quant [id number] mIU/mL (1-6) CT/MRI/US Diagnostic Results CT/MRI/US Diagnostic Results #1: Imaging Test Ordered: ABD US Impression unable to visualize appendix. no acute process identified CT/MRI/US Diagnostic Results #2: Imaging Test Ordered: OB US Impression IUP 11 weeks, +FHR. fibroid noted. bilateral ovarian cysts. Last Vital Signs Date Time Temp Pulse Resp B/P (MAP) Pulse Ox O2 Delivery O2 Flow Rate FiO2 01/27/18 00:56 97.7 74 14 131/88 99 Room Air 01/27/18 00:56 98 Status: improved Disposition: HOME, SELF-CARE Condition: Stable Scripts Acetaminophen* (TYLENOL EXTRA STRENGTH*) 500 Mg Tablet 500 MG ORAL Q8H PRN for Prn Headache/Temp > 101, #30 TAB 0 Refills Prov: Mark Cancino MD 01/27/18 Ondansetron Odt* (ZOFRAN ODT*) 4 Mg Tab.rapdis 4 MG BC EVERY 6 HOURS PRN for Nausea & Vomiting, #10 TAB 0 Refills Prov: Mark Cancino MD 01/27/18 Ranitidine Hcl* (ZANTAC*) 150 Mg Tablet 150 MG ORAL TWICE A DAY, #30 TAB Prov: Mark Cancino MD 01/27/18 Mark Cancino MD Jan 27, 2018 01:37
[2018-01-27 01:42] LABS: ALANINE AMINOTRANSFERASE 27 U/L (12-78); ALBUMIN 3.4 G/DL (3.4-5.0); ALBUMIN/GLOBULIN RATIO 0.7 (1.0-2.7); ALKALINE PHOSPHATASE 44 U/L (46-116); ASPARTATE AMINO TRANSFERASE 17 U/L (15-37); BILIRUBIN,TOTAL 0.2 MG/DL (0.2-1.0)
[2018-01-27] MEDS ORDERED: TYLENOL EXTRA500 MG ORAL (03:00)
[2018-01-27] MEDS ORDERED: RANITIDINE HCL150 MG ORAL (03:00)
[2018-01-27] MEDS ORDERED: ONDANSETRON ODT4 MG BC (03:00)
[2018-01-27 03:01] VITALS: BP 127/85
[2018-01-27 03:08] VITALS: BP 127/85
--- NOTE | 2018-01-27 09:55 | Diagnostic Imaging Report ---
Indication: Pain during Technique: Transabdominal pelvic ultrasound was performed. Findings: Evaluation limited as, per the dental technologist, patient declined the endovaginal exam. Transabdominal exam demonstrates: Uterus measures 17.7 x 12.3 x 8.6 cm. An intrauterine gestational sac is identified with a crown-rump length of approximately 4.7 cm. heart rate of 154 bpm. Mean gestational sac diameter of 5.6 cm. A heterogeneous mass lesion with some internal flow is noted within the uterus and measures approximately 6.6 x 4.7 x. 6.3 cm. This may represent a fibroid. The right ovary measures 5 x 6.8 by 3.2 cm. A simple appearing cysts in the right ovary measures up to 4.7 cm. Color flow to the right ovary is demonstrated however a Doppler tracing was not acquired. The left ovary measures 6.1 x 1.9 x 2.2 cm. Color flow to the left ovary is demonstrated average Doppler tracing was not acquired. The cervix is long and closed. There is no free pelvic fluid. IMPRESSION: Evaluation limited as, per the dental technologist, patient declined endovaginal exam. Transabdominal exam demonstrates: Single living intrauterine with approximate gestational age by ultrasound of 11 weeks and 3. heart rate of 154 bpm. Heterogeneous myometrial mass most likely representing a fibroid. Simple appearing right ovarian cyst measuring up to 4.7 cm. Color flow to the bilateral ovaries is suggested however evaluation is suboptimal as no Doppler tracing was obtained. Repeat exam recommended if there is clinical suspicion for ovarian torsion. Findings and recommendations discussed with Dr. Coreas of the ED 01/27/18 approximately 9:45 AM.
--- NOTE | 2018-01-27 10:06 | Diagnostic Imaging Report ---
Indication: Abdominal pain Technique: Focused scanning was performed to the right lower quadrant. Comparison: None Findings: Focused grayscale and color Doppler scanning was performed to the right lower quadrant. Appendix is not visualized. A simple appearing right ovarian cysts is partially visualized. Trace free pelvic fluid is noted. IMPRESSION: * Nonvisualization of the appendix. As such, the presence or absence of appendiceal pathology cannot be assessed. Correlate clinically. * Trace free fluid in the pelvis possibly physiologic. * Simple appearing right ovarian cyst. Findings correspond with the preliminary report by the lead nuclear medicine technologist.
[2018-01-28] MEDS ORDERED: PRENATAL VITAM1 EA10 PO (11:57)
== END 2018-01-27 03:11 | disposition home or self-care (01) ==
LOC: EMR 01:10
DX: O26.891 Other specified pregnancy related conditions, first trimester (principal); R10.9 Unspecified abdominal pain; Z3A.11 11 weeks gestation of pregnancy
CPT/HCPCS: 36415; 76705; 76801; 76830; 80053; 81003; 81025; 83690; 84702; 85025; 96361; 96374; 96375; 99284; J2270; J2405; S0028

== ENCOUNTER 2018-01-28 11:48 | Emergency (ER) | payer MEDICAID ==
[~2018-01-28] VITALS: Ht 152.4 cm; Wt 88.0 kg
[~2018-01-28 11:48] MED LIST changes: +FOLIC ACID1 MG ORAL; +ONDANSETRON ODT4 MG BC; +PRENATAL GUMMI1 EACH PO; +RANITIDINE HCL150 MG ORAL; +TYLENOL EXTRA500 MG ORAL
[2018-01-28] MEDS ORDERED: PRENATAL VITAM1 EA10 PO (11:57)
--- NOTE | 2018-01-28 12:45 | Emergency Room Report ---
History of Present Illness General Chief Complaint: Complications Source: Patient, Medical Record Present Illness HPI 23yo F with R sided burning abd pain, n/v, for the past few weeks, feeling better recently, but came to the ER bc previous visit US reported no visualization of R ovary so she returned for that evaluation. Allergies: Coded Allergies: No Known Allergies (Unverified , 01/27/18) Patient History Past Medical History: see triage record Last Menstrual Period: 11/10/2017 Reviewed Nursing Documentation: PMH: Agreed; PSxH: Agreed Nursing Documentation-PMH Past Medical History: No History, Except For Review of Systems All Other Systems: negative except mentioned in HPI Physical Exam Vital Signs Date Time Temp Pulse Resp B/P (MAP) Pulse Ox O2 Delivery O2 Flow Rate FiO2 01/28/18 11:51 97.9 76 14 116/72 98 Room Air Sp02 EP Interpretation: reviewed, normal General Appearance: no apparent distress, alert, non-toxic Head: normocephalic Eyes: bilateral eye normal inspection, bilateral eye PERRL, bilateral eye EOMI ENT: normal ENT inspection, hearing grossly normal, normal pharynx, no angioedema, normal voice, moist mucus membranes Neck: normal inspection, full range of motion, supple, supple/symm/no masses Respiratory: chest non-tender, lungs clear, normal breath sounds, chest symmetrical, palpation of chest normal Cardiovascular #1: normal peripheral pulses, regular rate, rhythm Cardiovascular #2: 2+ radial (R), 2+ radial (L) Gastrointestinal: normal inspection, non tender, soft, no mass, no guarding, no rebound Rectal: deferred Genitourinary: normal inspection, no CVA tenderness Musculoskeletal: back normal, gait/station normal, normal range of motion, non- tender, no calf tenderness Neurologic: alert, responsive, firebrick and refractory tile repairer III-XII nml as tested, motor strength/tone normal, sensory intact, speech normal Psychiatric: judgement/insight normal, memory normal, mood/affect normal Skin: normal color, no rash, warm/dry, normal turgor Lymphatic: no adenopathy Medical Decision Making Diagnostic Impression: Primary Impression: Abdominal pain during in first trimester ER Course Patient very well-appearing, came for repeat ultrasound, it showed 5mm R ov cyst , normal flow. Patient dc'd. Last Vital Signs Date Time Temp Pulse Resp B/P (MAP) Pulse Ox O2 Delivery O2 Flow Rate FiO2 01/28/18 11:51 97.9 76 14 116/72 98 Room Air Disposition: HOME, SELF-CARE Condition: Stable Referrals: NOT CHOSEN JAILYN/,REFERRING (PCP) JAIME BURNHAM M.D Jan 28, 2018 12:45
[2018-01-28 14:45] VITALS: BP 116/72
--- NOTE | 2018-01-28 15:38 | Diagnostic Imaging Report ---
Indication: Right-sided pelvic pain, patient, follow up from earlier exam Technique: Transabdominal and transvaginal images Comparison: Transabdominal exam only 01/27/2018 Findings: Uterus measures 14.3 cm length by 7.3 cm AP. Within the endometrium, there is a gestational sac. This demonstrates a crown-rump length of 50 mm, corresponding to estimated gestational age 11 weeks 5 days. It demonstrates positive motion and heart activity as well as a yolk sac.. heart rate is 168 bpm. No evidence of subchorionic hemorrhage. The cervix is closed, endocervical canal measuring 5.7 cm. Within the lower uterine segment, there is a 6.5 x 4.6 cm intramural mass, likely a fibroid. A lesion is seen in the right ovary measuring 5.3 cm with appearance consistent with simple cyst. The right ovary demonstrates normal Doppler flow. The left ovary 4.9 cm length. It demonstrates a 2.4 cm cyst demonstrates normal flow on Doppler imaging. Impression: Single live intrauterine , estimated gestational age 11 weeks 5 days. No unusual features Probable 6.5 cm lower uterine segment fibroid Negative for evidence of ovarian torsion Simple cyst in the right ovary is almost certainly benign, but should be followed yearly with ultrasound in a woman of reproductive age. Recommend pelvic ultrasound in 12 months. Recommendations for adnexal cyst follow-up per Society of Radiologists in Ultrasound 2009 consensus statement on management of asymptomatic and ovarian and other adnexal cysts (Sidhu et al., Radiology 2010 256: 943-54).
== END 2018-01-28 14:46 | disposition home or self-care (01) ==
LOC: EMR 12:02
DX: O26.891 Other specified pregnancy related conditions, first trimester (principal); R10.2 Pelvic and perineal pain; N83.201 Unspecified ovarian cyst, right side; Z3A.11 11 weeks gestation of pregnancy
CPT/HCPCS: 76801; 76830; 99284

== ENCOUNTER 2018-02-09 10:35 | Emergency (ER) | payer MEDICAID ==
[~2018-02-09] VITALS: Ht 152.4 cm; Wt 87.5 kg
[~2018-02-09 10:35] MED LIST changes: +PRENATAL VITAM1 EA10 PO
--- NOTE | 2018-02-09 10:45 | NUR ---
ED Nurse Note: Pt came in due to sore throat x4 days w/ cough and congestion. Pt is 13 weeks today. A + O x4. Ambulatory. VSS. Skin warm to touch. No edema noted.
[2018-02-09 10:46] VITALS: BP 125/87
[2018-02-09] MEDS ORDERED: TYLENOL EXTRA500 MG ORAL (11:22)
[2018-02-09] MEDS ORDERED: ALBUTEROL SULF8.5 GM INH (11:22)
[2018-02-09 11:33] VITALS: BP 125/87
--- NOTE | 2018-02-09 11:33 | NUR ---
ED Nurse Note: Discharge instructions given to pt. Answered all questions. Verbalized understanding. A + O x4. Ambulatory. ID band and Iv site removed. Left with all belongings. Left ER w/ steady gait.
--- NOTE | 2018-02-10 08:00 | Emergency Room Report ---
History of Present Illness General Chief Complaint: Upper Respiratory Illness Source: Patient Present Illness HPI 23-year-old female presents ED for evaluation. Patient states for the last 4 days she's been experiencing cough, sore throat and earache runny nose. Cough is productive with yellowish phlegm. Denies fevers or chills. Pain is dull, 5 out of 10, nonradiating. States she is about 13 weeks . Has been seen here previously for her . 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 Denying any abdominal pain vaginal bleeding at this time. Denies sick contacts or recent travel. No other aggravating relieving factors. Denies any other associated symptoms Allergies: Coded Allergies: No Known Allergies (Unverified , 01/27/18) Patient History Past Medical History: none Past Surgical History: none Pertinent Family History: none Social History: Denies: smoking, alcohol use, drug use Now: Yes - 13 weeks Immunizations: UTD Reviewed Nursing Documentation: PMH: Agreed; PSxH: Agreed Nursing Documentation-PMH Past Medical History: No History, Except For Review of Systems All Other Systems: negative except mentioned in HPI Physical Exam Vital Signs Date Time Temp Pulse Resp B/P (MAP) Pulse Ox O2 Delivery O2 Flow Rate FiO2 02/09/18 10:38 97.9 75 16 127/81 100 Room Air 02/09/18 10:46 98 Sp02 EP Interpretation: reviewed, normal General Appearance: no apparent distress, alert, GCS 15, non-toxic Head: normocephalic Eyes: bilateral eye normal inspection, bilateral eye PERRL ENT: hearing grossly normal, normal pharynx, no angioedema, normal voice Neck: full range of motion, supple, supple/symm/no masses Respiratory: chest non-tender, lungs clear, normal breath sounds, speaking full sentences Cardiovascular #1: normal inspection Gastrointestinal: normal inspection Rectal: deferred Genitourinary: no CVA tenderness Musculoskeletal: normal inspection Neurologic: alert, oriented x3, responsive, motor strength/tone normal, sensory intact, speech normal Psychiatric: normal inspection Skin: normal inspection Lymphatic: normal inspection Medical Decision Making Diagnostic Impression: Primary Impression: Upper respiratory symptom ER Course Hospital Course 23 yo F presents with cough, runny nose and sore throat. 13 weeks Differential diagnoses include: URI, pharyngitis, otitis media, asthma Clinical course Patient placed on stretcher. After initial history, physical exam reveals a young female in no acute distress. Bilateral TM unremarkable. No pharyngeal erythema. No tonsillar exudates. No lymphadenopathy. lungs clear. abdomen soft. Clinical findings consistent with URI. discussed with patient. treatment is supportive therapy Patient is asking or any cough medications that are safe in . Based on my experience I do not find any medications that will likely be safe in . However she can always check with her AWNING SPREADER. Patient safe for discharge at this time. I do not believe antibiotics are indicated at this time Diagnosis - URI Stable and discharged home with Rx tylenol. Instructed to followup with PMD. Return to ED if symptoms recur or worsen Last Vital Signs Date Time Temp Pulse Resp B/P (MAP) Pulse Ox O2 Delivery O2 Flow Rate FiO2 02/09/18 11:33 97.8 87 20 125/87 100 Room Air 98 Status: improved Disposition: HOME, SELF-CARE Condition: Stable Scripts Albuterol Sulfate* (ALBUTEROL SULFATE MDI*) 8.5 Gm Hfa.aer.ad 2 PUFF INH Q6H, #1 EA 0 Refills Prov: Mark Cancino MD 02/09/18 Acetaminophen* (TYLENOL EXTRA STRENGTH*) 500 Mg Tablet 500 MG ORAL Q8H PRN for Prn Headache/Temp > 101, #30 TAB 0 Refills Prov: Mark Cancino MD 02/09/18 Referrals: NON PHYSICIAN (PCP) [facility] Patrizia Barajas [facility] Patient Instructions: Upper Respiratory Infection, Adult Mark Cancino MD Feb 10, 2018 08:00
== END 2018-02-09 11:37 | disposition home or self-care (01) ==
LOC: EMR 10:49
DX: O98.811 Other maternal infectious and parasitic diseases complicating pregnancy, first trimester (principal); J06.9 Acute upper respiratory infection, unspecified; Z3A.13 13 weeks gestation of pregnancy
CPT/HCPCS: 99282

== ENCOUNTER 2019-07-03 11:42 | Emergency (ER) | payer MEDICAID ==
[~2019-07-03] VITALS: Ht 154.9 cm; Wt 84.4 kg
[2019-07-03 12:01] VITALS: BP 130/85
--- NOTE | 2019-07-03 12:01 | NUR ---
ED Nurse Note: Patient walked in to ED from home c/o suprapubic pain x1 week. Pt reports vaginal swelling/ itchiness and thick white vaginal discharge with foul odor. Pt has hx of Uterine fibroids and ovarian cyst. Pt has been using monistat cream x 1month but no relief.
--- NOTE | 2019-07-03 12:10 | Emergency Room Report ---
History of Present Illness General Chief Complaint: Female Urogenital Problems Source: Patient Present Illness HPI Patient presents with suprapubic tenderness and a vaginal discharge that is itchy and smelly. She tried Monistat last week but it did not work. She is breast-feeding and therefore her periods are irregular. She has a [id number] at home. Her last menstruation was March 24. She has also felt some nausea. She rates the pain 10/10 in the suprapubic area. She feels pressure. She denies fevers or chills. The pain is also vaginal with the discharge and itching. She denies dysuria. The pain is along her scar. There are no skin changes there. There is some radiation towards her lower back. She has had intermittent pain since the . This is been more constant for the last week. No sore throat, chest pain, palpitations, vomiting, diarrhea, shortness of breath, joint pain, rashes, depression, dizziness, headache. She states that during the a fibroid was removed. Allergies: Coded Allergies: No Known Allergies (Unverified , 01/27/18) COVID-19 Screening Contact w/high risk pt: No Recent Travel to affected area: No Experienced COVID-19 symptoms?: No COVID-19 Testing performed SPA MANAGER: No Patient History Past Medical History: see triage record Social History: Denies: smoking, alcohol use, drug use Social History Narrative at home with 10 month old Last Menstrual Period: 03/24/2019 Now: No Reviewed Nursing Documentation: PMH: Agreed; PSxH: Agreed Review of Systems All Other Systems: negative except mentioned in HPI Physical Exam Vital Signs Date Time Temp Pulse Resp B/P (MAP) Pulse Ox O2 Delivery O2 Flow Rate FiO2 07/03/19 11:54 98.2 58 16 130/85 (100) 99 Room Air Sp02 EP Interpretation: reviewed, normal General Appearance: well appearing, no apparent distress - Calmly reports pain 10/10, GCS 15 Head: normocephalic Eyes: bilateral eye normal inspection, bilateral eye PERRL, bilateral eye EOMI ENT: moist mucus membranes Neck: supple Respiratory: normal inspection, no respiratory distress Cardiovascular #1: regular rate, rhythm, no edema Cardiovascular #2: 2+ radial (R) Gastrointestinal: normal inspection, normal bowel sounds, no mass, non- distended, no guarding, no rebound, tenderness - Suprapubic Genitourinary: cervix normal, ext genitalia/vag normal, os closed, other - Whitish-yellow discharge, discomfort with speculum exam Musculoskeletal: back normal, normal range of motion, no calf tenderness, gait/ station normal Neurologic: alert, oriented x3, grossly normal Psychiatric: mood/affect normal Skin: no rash, warm/dry Medical Decision Making Diagnostic Impression: Primary Impression: Bacterial vaginosis Additional Impression: Suprapubic pain ER Course Patient presents with suprapubic discomfort and vaginal discharge. Differential includes ectopic , threatened miscarriage, PID, urinary tract infection, bacterial vaginosis, postoperative pain ovarian cyst, amongst others. Evaluation with urinalysis and wet mount with test. If test is positive ultrasound will be ordered. The patient is given Tylenol. Suspicion for PID is low as she is afebrile. Urinalysis negative. Negative test. Wet mount positive clue cells. Patient reports pain decreased significantly. With negative test ultrasound deferred. Because she is breast-feeding clindamycin is used instead of Flagyl. Discussed the possibility of diarrhea in her child and suggested pump and dump. Discussed outpatient observation and analgesia. No apparent emergency at this time. 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 Patient stable for outpatient observation and treatment. Laboratory Tests Test 07/03/19 12:06 Urine Color Yellow Urine Appearance Clear Urine pH 6 (4.5-8.0) Urine Specific [place] 1.020 (1.005-1.035) Urine Protein Negative (NEGATIVE) Urine Glucose (UA) Negative (NEGATIVE) Urine Ketones Negative (NEGATIVE) Urine Blood Negative (NEGATIVE) Urine Nitrite Negative (NEGATIVE) Urine Bilirubin Negative (NEGATIVE) Urine Urobilinogen Normal MG/DL (0.0-1.0) Urine Leukocyte Esterase Negative (NEGATIVE) Urine HCG, Qualitative Negative (NEGATIVE) Microbiology Date/Time Source Procedure Growth Status 07/03/19 12:33 Vaginal Wet Prep - Final Complete Last Vital Signs Date Time Temp Pulse Resp B/P (MAP) Pulse Ox O2 Delivery O2 Flow Rate FiO2 07/03/19 13:19 98.2 62 19 128/78 100 Room Air Status: improved Disposition: HOME, SELF-CARE Condition: Improved Scripts #103/Iron Fumarate/Fa ( TABLET) 1 Each Tablet 1 EACH PO DAILY, #30 TAB Prov: Osorio Cerrato MD 07/03/19 Clindamycin HCl (Clindamycin HCl) 300 Mg Capsule 300 MG ORAL BID, #14 CAP Prov: Osorio Cerrato MD 07/03/19 Osorio Cerrato MD July 03, 2019 12:10
--- NOTE | 2019-07-03 12:16 | NUR ---
ED Nurse Note: Urine specimen collected and sent to lab.
--- NOTE | 2019-07-03 12:34 | NUR ---
ED Nurse Note: Wet mount collected by ROSALIO and a nurse. Sent to lab.
[2019-07-03 12:55] LABS: APPEARANCE,URINE CLEAR; BILIRUBIN, URINE NEGATIVE (NEGATIVE); GLUCOSE, URINE (UA) NEGATIVE (NEGATIVE); KETONES,URINE NEGATIVE (NEGATIVE); LEUKOCYTE ESTERASE ,URINE NEGATIVE (NEGATIVE); NITRITE,URINE NEGATIVE (NEGATIVE); PH,URINE 6 (4.5-8.0); PROTEIN,URINE NEGATIVE (NEGATIVE); UROBILINOGEN,URINE NORMAL MG/DL (0.0-1.0)
[2019-07-03 12:57] LABS: COLOR,URINE YELLOW
[2019-07-03] MEDS ORDERED: CLEOCIN150 MG ORAL (13:09)
[2019-07-03] MEDS ORDERED: Clindamycin 150mg cap ORAL STA (13:10)
[2019-07-03 13:19] VITALS: BP 128/78
--- NOTE | 2019-07-03 13:19 | NUR ---
ED Nurse Note: Pt cleared by ERMD for discharge. DC instructions/prescription was given and explained to pt and verbalized understanding of teachings. All medical deviecs such as ID band removed. Pt is AAO x4, ambulatory and left with all personal belongings.
== END 2019-07-03 13:19 | disposition home or self-care (01) ==
LOC: EMR 12:15
DX: N76.0 Acute vaginitis (principal); R10.2 Pelvic and perineal pain
CPT/HCPCS: 81003; 81025; 87210; Z7502; 99283